=== PATIENT | female | born 1990 | race Caucasian/White ===

== ENCOUNTER 2023-03-01 20:41 | Emergency (ER) | payer MEDICAID ==
[~2023-03-01] VITALS: Ht 154.9 cm; Wt 63.2 kg
[2023-03-01 20:53] VITALS: BP 126/80; PULSE 114; RESP 18; TEMP 99
[2023-03-01] MEDS ORDERED: LITH300C3 PO (21:04)
[2023-03-01] MEDS ORDERED: BUSP5TAB20 PO (21:04)
[2023-03-01] MEDS ORDERED: TRAZ-252 PO (21:04)
[2023-03-01] MEDS ORDERED: BACTDSB PO (22:50)
[2023-03-01] MEDS ORDERED: DIPH25TA20 PO (22:50)
[2023-03-01] MEDS ORDERED: METH4TAB3 PO (22:50)
[2023-03-01] MEDS ORDERED: FAMO20 PO (22:50)
[2023-03-01] MEDS ORDERED: FAMOTIDINE 20 MG TABLET PO ONE (23:00)
[2023-03-01] MEDS ORDERED: SULFAMETHOX/TRIMETH DS 800-160 MG/TABLET PO ONE (23:00)
[2023-03-01] MEDS ORDERED: DEXAMETHASONE SOD PHOS 4 MG/ML 5 ML VIAL IM ONE (23:00)
== END 2023-03-01 23:04 | disposition home or self-care (01) ==
LOC: EMS 20:42
DX: S60.561A Insect bite (nonvenomous) of right hand, initial encounter (principal); L50.9 Urticaria, unspecified; F17.210 Nicotine dependence, cigarettes, uncomplicated; Z98.890 Other specified postprocedural states; W57.XXXA Bitten or stung by nonvenomous insect and other nonvenomous arthropods, initial encounter; Y93.89 Activity, other specified; Y92.89 Other specified places as the place of occurrence of the external cause; Y99.8 Other external cause status
CPT/HCPCS: 99283; 96372; J1100